=== PATIENT | female | born 1970 | race Caucasian/White ===

== ENCOUNTER 2018-07-05 10:55 | Emergency (ER) | payer OTHER, MEDICAID ==
[2018-07-05] MEDS ORDERED: Sodium Chloride 0.9% 1,000 ML IV SCH (11:30)
--- NOTE | 2018-07-05 11:37 | EDM.PDOC ---
ED HPI GENERAL MEDICAL PROBLEM - General Chief Complaint: Neurological Problem Stated Complaint: CHECK INCISION FROM BRAIN SURGERY Time Seen by Provider: 07/05/18 11:32 Source of Information: Reports: Patient, Family (spouse) History Limitations: Reports: No Limitations - History of Present Illness INITIAL COMMENTS - FREE TEXT/NARRATIVE: provides good deal of the history. Patient apparently is finding it more difficult to find the right words to say i.e. expressive aphasia. He had a high-grade tumor presumably a glioblastoma resected from her brain in October [address] Ho neurosurgeon in [place] is currently receiving chemotherapy 5 days of every month. There is some WITH balance and perhaps increased right leg weakness as well. However he reports morbid depressed mood and little limited ability to talk at times because of the specimen aphasia and frustration. She came to the ED primarily to have a small papule on the center of her scalp checked out. This appears to be a stitch abscess that may be working its way to the surface. She will be doxycycline 100 mg twice a day for 10 days and topical Bactroban. Onset: Gradual Onset Date: 07/02/18 (Noted painful skin lesion about 3 days ago vertex of) Duration: Day(s):, Other (Specimen aphasia symptoms seem to be worse over the last 2 days and perhaps slightly increased positive balance and right leg weakness.) Quality: Reports: Ache Severity: Mild (The lesion on the top of her head is tender to touch.) Improves with: Reports: None Worsens with: Reports: None Context: Denies: Activity, Exercise, Lifting, Sick Contact, Trauma Associated Symptoms: Reports: Other (Expressive aphasia perhaps right leg weakness and falls with balance). Denies: Confusion, Chest Pain, Cough, cough w sputum Treatments UTILITIES MANAGER: Reports: Other (see below) Head Pain Score (Numeric/FACES): 1 - Related Data Allergies Allergy/AdvReac Type Severity Reaction Status Date / Time No Known Allergies Allergy Verified 11/28/17 10:24 Home Meds: Home Meds Citalopram Hydrobromide [Celexa] 40 mg PO DAILY 08/16/16 [History] Cholecalciferol (Vitamin D3) [Vitamin D3] 5,000 unit PO DAILY 08/01/17 [History] Acetaminophen 1,000 mg PO Q6H PRN 11/28/17 [History] LORazepam 1 mg PO BEDTIME PRN 11/28/17 [History] Doxycycline [Vibramycin] 100 mg PO BID #20 cap 07/05/18 [Rx] Mupirocin Oint [Bactroban Oint] 22 gm TOP BID #1 tube 07/05/18 [Rx] Past Medical History HEENT History: Reports: Allergic Rhinitis, Other (See Below) Other HEENT History: wears glasses Cardiovascular History: Reports: None Respiratory History: Reports: None Gastrointestinal History: Reports: None Genitourinary History: Reports: None EKG MANAGER History: Reports: , Spontaneous Musculoskeletal History: Reports: Arthritis, Other (See Below) Other Musculoskeletal History: 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 Recent brain surgery, October 27 for a high-grade tumor presumptively a glioblastoma. Apparently his diagnosis stage IV. She is currently receiving chemotherapy 5 days of every month. MRI is being done every 3 months. Psychiatric History: Reports: Anxiety, Depression Endocrine/Metabolic History: Reports: None Hematologic History: Reports: Other (See Below) Other Hematologic History: erythrocytopenia, cryofibrinogenemia Immunologic History: Reports: None Oncologic (Cancer) History: Reports: Brain Dermatologic History: Reports: Other (See Below) Other Dermatologic History: acne, mixed cryofibrinogenemia - Infectious Disease History Infectious Disease History: Reports: Chicken Pox - Past Surgical History Head Surgeries/Procedures: Reports: None Cardiovascular Surgical History: Reports: None Respiratory Surgical History: Reports: None GI Surgical History: Reports: None Female Surgical History: Reports: Cervical Cryotherapy, Tubal Ligation Other Female Surgeries/Procedures: dysmenorrhea, menorrhagia, pre mentstural dyspohric disorder, thickened endometrium Endocrine Surgical History: Reports: None Neurological Surgical History: Reports: None Musculoskeletal Surgical History: Reports: Other (See Below) Other Musculoskeletal Surgeries/Procedures:: bilateral foot surgery, knee surgery Oncologic Surgical History: Reports: None Dermatological Surgical History: Reports: None Social & Family History - Family History Family Medical History: Noncontributory - Caffeine Use Caffeine Use: Reports: Coffee - Living Situation & Occupation Living situation: Reports: Occupation: Unemployed ED ROS GENERAL - Review of Systems Review Of Systems: See Below Constitutional: Denies: Fever, Chills, Malaise, Weakness, Fatigue HEENT: Reports: Other (Recently seen the geomagnetician and she does have loss of vision in the right peripheral field of vision.) Respiratory: Reports: No Symptoms Cardiovascular: Reports: No Symptoms Endocrine: Reports: No Symptoms GI/Abdominal: Reports: Constipation : Reports: No Symptoms Musculoskeletal: Reports: Other (Weakness right lower extremity.) Skin: Reports: Other (Skin papular vertex of the scalp reason for coming to the ED) Neurological: Reports: Other (Having a little bit more difficulty walking due to right leg weakness. Also some problems with her speech in terms of ability to find the word she wants to say i.e. expressive aphasia.) Psychiatric: Reports: Anxiety Hematologic/Lymphatic: Reports: No Symptoms ED EXAM, NEURO - Physical Exam Exam: See Below Exam Limited By: Other (She doesn't speak very much I believe because of the expressive aphasia and difficulty getting her point across. does most of the speaking for her.) General Appearance: Alert, WD/WN, Anxious Eye Exam: Bilateral Eye: Normal Inspection, PERRL, Vision Changes (She does have loss of peripheral vision right eye) Head Exam: Other (Wood has a crusty lesion similar to impetigo vertex mid scalp. Likely a stitch abscess. Will be treated conservatively with Doxil cycle 100 mg twice a day for 10 days and topical mucin).) Neck: Normal Inspection, Supple, Non-Tender, Full Range of Motion Respiratory/Chest: No Respiratory Distress, Lungs Clear, Normal Breath Sounds Cardiovascular: Normal Peripheral Pulses, Regular Rate, Rhythm, No Edema, No Murmur, No Rub GI/Abdominal: Normal Bowel Sounds, Soft, Non-Tender, No Organomegaly Neurological: CN II-XII Intact, Oriented x 3, Difficulty Walking, Other (She is mildly ataxic appears to have some right leg weakness. Exhibiting some signs of expressive aphasia.). No: Normal Gait Extremities: Normal Inspection, Normal Range of Motion, Non-Tender, No Pedal Edema Psychiatric: Flat Affect Skin Exam: Warm, Dry, Intact, Normal Color, No Rash Course - Vital Signs Last Recorded V/S: Last Vital Signs Temp 36.7 C 07/05/18 11:22 Pulse 83 07/05/18 11:22 Resp 20 07/05/18 11:22 BP 127/86 07/05/18 11:22 Pulse Ox 100 07/05/18 11:22 - Orders/Labs/Meds Labs: Laboratory Tests 07/05/18 07/05/18 Range/Units 11:45 11:45 WBC 4.46 (3.98-10.04) K/mm3 RBC 4.21 (3.98-5.22) M/mm3 Hgb 13.7 (11.2-15.7) gm/L Hct 40.7 (34.1-44.9) % MCV 96.7 H (79.4-94.8) fl MCH 32.5 H (25.6-32.2) pg MCHC 33.7 (32.2-35.5) g/dl RDW Std Deviation 42.4 (36.4-46.3) fL Plt Count 268 (182-369) K/mm3 MPV 10.0 (9.4-12.3) fl Neutrophils % (Manual) 64 H (40-60) % Band Neutrophils % 0 (0-10) % Lymphocytes % (Manual) 19 L (20-40) % Atypical Lymphs % 0 % Monocytes % (Manual) 12 H (2-10) % Eosinophils % (Manual) 5 (0.7-5.8) % Basophils % (Manual) 0 L (0.1-1.2) Platelet Estimate Adequate RBC Morph Comment Normal Sodium 142 (136-145) mEq/L Potassium 4.0 (3.5-5.1) mEq/L Chloride 102 (98-107) mEq/L Carbon Dioxide 30 (21-32) mEq/L Anion Gap 14.0 (5-15) BUN 12 (7-18) mg/dL Creatinine 0.8 (0.55-1.02) mg/dL Est Cr Clr Drug Dosing 75.07 mL/min Estimated GFR (MDRD) > 60 (>60) mL/min BUN/Creatinine Ratio 15.0 (14-18) Glucose 96 (74-106) mg/dL Calcium 9.8 (8.5-10.1) mg/dL Total Bilirubin 0.7 (0.2-1.0) mg/dL AST 12 L (15-37) U/L ALT 21 (14-59) U/L Alkaline Phosphatase 98 (46-116) U/L Total Protein 8.4 H (6.4-8.2) g/dl Albumin 4.2 (3.4-5.0) g/dl Globulin 4.2 gm/dL Albumin/Globulin Ratio 1.0 (1-2) Meds: Medications Discontinued Medications Generic Name Dose Route Start Last Admin Trade Name Ori PRN Reason Stop Dose Admin Gadobenate Dimeglumine 12 ml 07/05/18 12:20 07/05/18 12:41 Multihance IVPUSH 07/05/18 12:21 12 ml ONETIME ONE Administration Sodium Chloride 1,000 mls @ 100 mls/hr 07/05/18 11:30 07/05/18 11:51 Normal Saline IV 100 mls/hr ASDIRECTED VINOD Administration Sodium Chloride 10 ml 07/05/18 12:30 07/05/18 12:41 Saline Flush FLUSH 10 ml ASDIRECTED VINOD Administration - Radiology Interpretation Free Text/Narrative:: 48-year-old female presents to the ED with a papule on the mid vertex of her scalp which appears to be like to be a stitch abscess working his way to the surface. It is tender to touch. Not draining. Will be treated with doxepin 100 mg twice a day for 10 days and topical Bactroban. One was in the room and the indicates that she is having more troubles with her speech expressive aphasia and perhaps balance particularly right leg weakness. She had tumor resected by Dr. Cuevas neurosurgeon at [facility] in October last year. She is receiving chemotherapy 5 days per month. Apparently this is a high-grade tumor and staged as stage IV. is therefore requesting MRI be done if possible help further evaluate whether or not the tumor is spreading. Encourage deficit. Patient has also had radiotherapy which may be causing intermittent problems with neurological function in this area as well. Apparently MRI will be available in about an hour and a half. It'll be done therefore with and without contrast. Labs will be done to make sure creatinine is okay. Normal saline at 100 mils per hour - Re-Assessments/Exams Free Text/Narrative Re-Assessment/Exam: 07/05/18 14:30: MRI of the brain reveals degenerative changes in the left parietal lobe compatible with postoperative surgical changes and perhaps some blood in this area. There is an area of FLAIR suggesting possible tumor recurrence but without other MRIs to compare to cannot be sure. Thus sent the MRI to [facility]. I did try to contact her neurosurgeon Dr. Eldridge but he's not available today. Note faxed to his office to alert him to have a look at the MRI and a compared to the ones that they have. Believe she has appointment in the near future with him. Departure - Departure Time of Disposition: 14:31 Disposition: Home, Self-Care 01 Condition: Fair Clinical Impression: Postoperative stitch abscess - Discharge Information *PRESCRIPTION DRUG MONITORING PROGRAM REVIEWED*: Not Applicable *COPY OF PRESCRIPTION DRUG MONITORING REPORT IN PATIENT LUIGI: Not Applicable Prescriptions: Doxycycline [Vibramycin] 100 mg PO BID #20 cap Mupirocin Oint [Bactroban Oint] 22 gm TOP BID #1 tube Referrals: Britta Frederick NP [Primary Care Provider] - Forms: ED Department Discharge Additional Instructions: Evaluation the emergency room today in regards to a sore on the mid vertex of the scalp. This is likely a stitch that is coming through the surface of the skin with mild underlying infection. Treatment is doxycycline 100 mg twice daily for the next 10 days and topical Bactroban ointment ideally twice daily morning and bedtime until it's gone. Stefany of the brain was carried out and so we don't have one to compare to the findings are compatible with previous surgery within the left parietal region of the brain low signal seen which is felt to represent old blood as well as diffuse increased signal on the FLAIR sequence likely representing demyelination of the white matter from previous radiation treatments. I have set the MRI down to Dr. Johnson's office that he would be able to compare to MRIs that they have on file there. Have sent a message but unfortunately he is out of the office today. You may wish to call him early next week so that he could look at the MRI and have the radiologist there compared to their MRIs.
[2018-07-05] MEDS ORDERED: Gadobenate Dimeglumine 529 MG/ML 15 ML SDV IVPUSH ONE (12:20)
[2018-07-05] MEDS ORDERED: Sodium Chloride 0.9% 10 ML Syringe FLUSH SCH (12:30)
--- NOTE | 2018-07-05 13:37 | MR ---
MRI brain (without and with intravenous contrast) Technique: T1 sagittal; T1, T2, T2 FLAIR, diffusion and T1 post-gadolinium axial; T1 and T1 post-gadolinium coronal images were obtained. Comparison: Prior head CT study of 01/29/18. Findings: Prior craniotomy is noted. Low signal finding is seen most likely due to old blood from previous surgery within the anterior parietal convexity. Slight surrounding enhancement is seen in this area and uncertain if this represents postoperative enhancement or residual enhancing tumor. No midline shift or mass effect is seen. There is increased signal on the FLAIR sequence which is felt to represent demyelination within the left parietal white matter secondary to previous tumor treatment. No other abnormal signal is seen within the brain parenchyma. Normal signal void is seen within the major cerebral arteries within the skull base. Small retention cyst noted within the right frontal sinus. Impression: 1. Findings compatible with previous surgery within the left parietal region. Low signal is seen which is felt to represent old blood as well as diffuse increased signal on the FLAIR sequence likely representing demyelination of the white matter from previous tumor treatment. 2. Mild areas of enhancement within the left parietal region, without previous comparison MRI difficult to exclude residual tumor as causing the enhancement. 3. Other incidental findings. Diagnostic code #9
== END 2018-07-05 15:00 | disposition home or self-care (01) ==
LOC: JD.ED 10:55
DX: T81.41XA Infection following a procedure, superficial incisional surgical site, initial encounter (principal); F41.9 Anxiety disorder, unspecified; F32.9 Major depressive disorder, single episode, unspecified; Z79.899 Other long term (current) drug therapy
CPT/HCPCS: 36415; 70553; 80053; 85007; 85027; 96360; 96361; 99284; A9577; J7040; 99283

== ENCOUNTER 2020-07-31 18:17 | Emergency (ER) | payer MEDICARE, MEDICAID ==
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
--- NOTE | 2020-08-01 09:53 | CT ---
Head CT Technique: Multiple axial sections were obtained through the brain. Intravenous contrast was not utilized. Comparison: Previous head CT study of 01/29/18. Findings: Increased density is seen overlying the anterior left frontal horn which is compatible with previous surgery. Low density is noted within the left frontal region. These findings presumably represent change from previous tumor. Findings are fairly stable from prior exam. Prior left craniotomy is noted. Slight diminished density is noted within other portions of the periventricular white matter most likely representing mild small vessel ischemic demyelination change. No other abnormal parenchymal densities are seen. No evidence of intracranial hemorrhage. No midline shift or mass-effect is seen. Bone window settings were reviewed. Visualized mastoid sinuses and paranasal sinuses show nothing acute. No acute calvarial finding is seen. Impression: 1. Findings within the left frontal region compatible with previous surgery. No appreciable change from previous study is seen. 2. Nothing acute is definitely appreciated on noncontrast head CT exam. Diagnostic code #2 I agree with preliminary report from [facility], finalized on 07/31/20, 8:54 PM CDT
== END 2020-07-31 20:11 | disposition home or self-care (01) ==
LOC: JD.ED 18:17
DX: R41.0 Disorientation, unspecified (principal); Z87.891 Personal history of nicotine dependence
CPT/HCPCS: 36415; 70450; 70450-26; 80053; 83735; 85025; 99284; 99285-25